=== PATIENT | male | born 1980 | race Caucasian/White ===

== ENCOUNTER 2019-02-07 18:00 | Inpatient (IN) | payer OTHER ==
[2019-02-07 21:47] VITALS: BMI 23.6
--- NOTE | 2019-02-08 02:44 | HP ---
RORY DANIEL Rehab Assess/Revision - Vital signs Vital Signs: Vital Signs Period Temp Pulse Resp BP Sys/Farooq Pulse Ox Last 24 Hr 99.5 F 142 22 119/85 Inpatient Rehab Admission - Rehab Decision to Admit Inpatient rehab admission?: Yes - Initial Determination Are CD services needed?: No Free of communicable disease: Yes Not in need of hospitalization: Yes - Rehab Admission Criteria Previous failed treatment: Yes Poor recovery environment: Yes Comorbidities: Yes Lacks judgement: No Patient is meeting Inpatient Rehab admission criteria:: Yes
--- NOTE | 2019-02-08 02:47 | HP ---
CIWA Score - Admission Criteria OASAS Guidelines: Admission for Medically Managed Detox: Requires at least one of the followin. CIWA greater than 12 2. Seizures within the past 24 hours 3. Delirium tremens within the past 24 hours 4. Hallucinations within the past 24 hours 5. Acute intervention needed for co occurring medical disorder 6. Acute intervention needed for co occurring psychiatric disorder 7. Severe withdrawal that cannot be handled at a lower level of care (continued vomiting, continued diarrhea, abnormal vital signs) requiring intravenous medication and/or fluids 8. Admitting History and Physical - Smoking History Smoking history: Never smoked Have you smoked in the past 12 months: No - Alcohol/Substance Use Hx Alcohol Use: Yes Admission [facility] Allergies/Adverse Reactions: Allergies Allergy/AdvReac Type Severity Reaction Status Date / Time No Known Allergies Allergy Verified 02/07/19 21:32 - Ebola screening Have you traveled outside of the country in the last 21 days: No (N) Have you had contact with anyone from an Ebola affected area: No Do you have a fever: No Patient History - Patient Medical History Hx Anemia: No Hx Asthma: No Hx Chronic Obstructive Pulmonary Disease (COPD): No Hx Cardiac Disorders: No Hx Congestive Heart Failure: No Hx Hypertension: Yes (no med) Hx Hypercholesterolemia: No Hx Pacemaker: No HX Cerebrovascular Accident: No Hx Seizures: No Hx Dementia: No Hx Diabetes: No Hx Gastrointestinal Disorders: No Hx Liver Disease: No Hx Genitourinary Disorders: No Hx Sexually Transmitted Disorders: No Hx Renal Disease (ESRD): No Hx Thyroid Disease: No Hx Human Immunodeficiency Virus (HIV): No (last 05/31) Hx Hepatitis C: No Hx Depression: Yes (insomnia) Hx Suicide Attempt: Yes ([place]ose) Hx Bipolar Disorder: No Hx Schizophrenia: No - Patient Surgical History Past Surgical History: Yes Hx Neurologic Surgery: No Hx Cataract Extraction: No Hx Cardiac Surgery: No Hx Lung Surgery: No Hx Breast Surgery: No Hx Breast Biopsy: No Hx Abdominal Surgery: No Hx Appendectomy: No Hx Cholecystectomy: No Hx Genitourinary Surgery: No Hx Section: No Hx Orthopedic Surgery: Yes (LEFT ARM-2000 with deformity) Anesthesia Reaction: No - PPD History Date: 08/05/14 - Smoking Cessation Smoking history: Never smoked Have you smoked in the past 12 months: No - Substances abused Alcohol Substance route: Oral Frequency: Daily Amount used: 3 or 4 40's of beer/ bottle of vodka. Age of first use: 17 Date of last use: 02/07/19 Admission Physical Exam [facility] - Vital Signs Vital Signs: Vital Signs - 24 hr 02/07/19 21:31 Temperature 99.5 F Pulse Rate 142 H Respiratory 22 H Rate Blood Pressure 119/85
[2019-02-08] MEDS ORDERED: guaiFENesin 200 MG/10 ML 10 ML UNIT-DOSE CUPS PO PRN (02:48)
[2019-02-08] MEDS ORDERED: MAG HYDROX/AL HYDROX/SIMETH 30 ML UNIT-DOSE CUP PO PRN ×2 (02:48→17:00)
[2019-02-08] MEDS ORDERED: ACETAMINOPHEN 325 MG TABLET (FP) PO PRN ×3 (02:48→17:00)
[2019-02-08] MEDS ORDERED: P-EPHED 60MG/TRIPROLIDI 2.5MG TABLET PO PRN (02:48)
[2019-02-08] MEDS ORDERED: IBUPROFEN 400 MG TABLET (FP) PO PRN ×2 (02:48→17:00)
[2019-02-08] MEDS ORDERED: MAGNESIUM CITRATE 300 ML BOTTLE PO PRN ×2 (02:48→17:00)
[2019-02-08] MEDS ORDERED: MENTHOL/PHENOL 1 EACH UD MM PRN ×2 (02:48→17:00)
[2019-02-08] MEDS ORDERED: LOPERAMIDE HCL 2 MG CAPSULE PO PRN (02:48)
[2019-02-08] MEDS ORDERED: MAGNESIUM HYDROX 2400MG/30ML ORAL SUSPENSION 30 ML CUP PO PRN ×2 (02:48→17:00)
[2019-02-08] MEDS ORDERED: NICOTINE POLACRILEX 2 MG GUM BUC PRN (02:48)
--- NOTE | 2019-02-08 02:57 | HP ---
CIWA Score - Admission Criteria OASAS Guidelines: Admission for Medically Managed Detox: Requires at least one of the followin. CIWA greater than 12 2. Seizures within the past 24 hours 3. Delirium tremens within the past 24 hours 4. Hallucinations within the past 24 hours 5. Acute intervention needed for co occurring medical disorder 6. Acute intervention needed for co occurring psychiatric disorder 7. Severe withdrawal that cannot be handled at a lower level of care (continued vomiting, continued diarrhea, abnormal vital signs) requiring intravenous medication and/or fluids 8. Admitting History and Physical - Smoking History Smoking history: Never smoked Have you smoked in the past 12 months: No Admission [facility] Chief Complaint: Seeking admission to Rehab Allergies/Adverse Reactions: Allergies Allergy/AdvReac Type Severity Reaction Status Date / Time No Known Allergies Allergy Verified 02/07/19 21:32 History of Present Illness: 38 years old male is seeking admission to Rehab. Patient has medical history of hypertension and depression. Denies suicidal ideation at this time. Patient reports that he was detoxed a [facility], [place] Exam Limitations: No Limitations - Ebola screening Have you traveled outside of the country in the last 21 days: No (N) Have you had contact with anyone from an Ebola affected area: No Do you have a fever: No - Review of Systems Constitutional: No Symptoms Reported EENT: reports: No Symptoms Reported Respiratory: reports: No Symptoms reported Cardiac: reports: No Symptoms Reported GI: reports: No Symptoms Reported : reports: No Symptoms Reported Musculoskeletal: reports: No Symptoms Reported Integumentary: reports: No Symptoms Reported Neuro: reports: No Symptoms reported Endocrine: reports: No Symptoms Reported Hematology: reports: No Symptoms Reported Psychiatric: reports: No Sypmtoms Reported, Mood/Affect Appropiate Other Systems: Reviewed and Negative Patient History - Patient Medical History Hx Anemia: No Hx Asthma: No Hx Chronic Obstructive Pulmonary Disease (COPD): No Hx Cardiac Disorders: No Hx Congestive Heart Failure: No Hx Hypertension: Yes (no med) Hx Hypercholesterolemia: No Hx Pacemaker: No HX Cerebrovascular Accident: No Hx Seizures: No Hx Dementia: No Hx Diabetes: No Hx Gastrointestinal Disorders: No Hx Liver Disease: No Hx Genitourinary Disorders: No Hx Sexually Transmitted Disorders: No Hx Renal Disease (ESRD): No Hx Thyroid Disease: No Hx Human Immunodeficiency Virus (HIV): No (last 05/31) Hx Hepatitis C: No Hx Depression: Yes (insomnia) Hx Suicide Attempt: No Hx Bipolar Disorder: No Hx Schizophrenia: No - Patient Surgical History Past Surgical History: Yes Hx Neurologic Surgery: No Hx Cataract Extraction: No Hx Cardiac Surgery: No Hx Lung Surgery: No Hx Breast Surgery: No Hx Breast Biopsy: No Hx Abdominal Surgery: No Hx Appendectomy: No Hx Cholecystectomy: No Hx Genitourinary Surgery: No Hx Section: No Hx Orthopedic Surgery: Yes (LEFT ARM-2000 with deformity) Anesthesia Reaction: No - PPD History Previous Implant?: Yes Documented Results: Negative w/o proof Implanted On Prior R Admission?: Yes Date: 08/05/14 PPD to be Administered?: Yes - Reproductive History Patient is a Female of Child Bearing Age (11 -55 yrs old): No (male) - Smoking Cessation Smoking history: Never smoked Have you smoked in the past 12 months: No Hx Chewing Tobacco Use: No Initiated information on smoking cessation: No - Substance & Tx. History Hx Alcohol Use: Yes Hx Substance Use: Yes Substance Use Type: Tranquilizers Hx Substance Use Treatment: Yes ([facility]) - Substances abused Alcohol Substance route: Oral Frequency: Daily Amount used: 3 or 4 40's of beer/ bottle of vodka. Age of first use: 17 Date of last use: 02/07/19 Admission Physical Exam [facility] - Vital Signs Vital Signs: Vital Signs - 24 hr 02/07/19 21:31 Temperature 99.5 F Pulse Rate 142 H Respiratory 22 H Rate Blood Pressure 119/85 - Physical General Appearance: Yes: Within Normal Limits, Nourished HEENTM: Yes: Within Normal Limits, Hearing grossly Normal, Normal ENT Inspection , Normocephalic, BRENDAN Respiratory: Yes: Lungs Clear, Normal Breath Sounds, No Respiratory Distress Neck: Yes: Supple Breast: Yes: Breast Exam Deferred Cardiology: Yes: Regular Rhythm, Regular Rate Abdominal: Yes: Normal Bowel Sounds Genitourinary: Yes: Within Normal Limits Back: Yes: Normal Inspection Musculoskeletal: Yes: Within Normal Limits Extremities: Yes: Within Normal Limits 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: Yes: Within Normal Limits, Alert, Normal Mood/Affect Integumentary: Yes: Warm Lymphatic: Yes: Within Normal Limits - Diagnostic (1) Alcohol dependence Current Visit: Yes Status: Chronic (2) Hypertension Current Visit: Yes Status: Chronic Qualifiers: Hypertension type: essential hypertension Qualified Code(s): I10 - Essential (primary) hypertension (3) Insomnia Current Visit: Yes Status: Chronic Cleared for Admission [facility] - Detox or Rehab [facility] Level of Care: Observation Bed Claeared for Rehab Admission: Yes Inpatient Rehab Admission - Rehab Decision to Admit Inpatient rehab admission?: Yes - Initial Determination Are CD services needed?: No Free of communicable disease: Yes Not in need of hospitalization: Yes - Rehab Admission Criteria Previous failed treatment: Yes Poor recovery environment: Yes Comorbidities: Yes Lacks judgement: No Patient is meeting Inpatient Rehab admission criteria:: Yes
[2019-02-08] MEDS ORDERED: hydrOXYzine PAMOATE 50 MG CAPSULE (FP) PO ONE (03:58)
[2019-02-08 09:33] LABS: HEMOGLOBIN 12.7 GM/dL (11.7-16.9); MCH 31.4 pg (25.7-33.7); MCHC 34.3 g/dl (32.0-35.9); MEAN CELL VOLUME 91.5 fl (80-96); PLATELET COUNT 240 K/MM3 (134-434); RBC 4.05 M/mm3 (4.00-5.60); RDW 14.5 % (11.9-15.9); WHITE BLOOD COUNT 5.7 K/mm3 (4.0-10.0)
[2019-02-08 09:50] LABS: ALBUMIN 3.9 g/dl (3.4-5.0); BILIRUBIN,TOTAL 0.4 mg/dL (0.2-1); BLOOD UREA NITROGEN 18.2 mg/dL (7-18); CALCIUM 8.9 mg/dL (8.5-10.1); POTASSIUM 3.9 mmol/L (3.5-5.1); TOT PROT 7.4 g/dl (6.4-8.2)
[2019-02-08] MEDS ORDERED: NICOTINE 14 MG/24 HOURS TOPICAL PATCH TD SCH (10:00)
[2019-02-08] MEDS ORDERED: PRENATAL VITAMINS W/ FOLIC ACID TABLET (FP) PO SCH (10:00)
--- NOTE | 2019-02-08 11:27 | EKG ---
Test Reason : Blood Pressure : / mmHG Vent. Rate : 097 BPM Atrial Rate : 097 BPM P-R Int : 126 ms QRS Dur : 090 ms QT Int : 384 ms P-R-T Axes : 155 -25 -29 degrees QTc Int : 487 ms UNUSUAL P AXIS, POSSIBLE ECTOPIC ATRIAL RHYTHM INFERIOR INFARCT , AGE UNDETERMINED ABNORMAL ECG NO PREVIOUS ECGS AVAILABLE Confirmed by Camacho Woodard MD ([id number]) on 02/08/2019 11:26:31 AM Referred By: Confirmed By:Camacho Woodard MD
[2019-02-08] MEDS ORDERED: hydrOXYzine PAMOATE 50 MG CAPSULE (FP) PO PRN (12:08)
[2019-02-08] MEDS ORDERED: cloNIDine HCL 0.1 MG TABLET PO ONE (13:15)
--- NOTE | 2019-02-08 15:54 | HP ---
CIWA Score Nausea/Vomitin-Mild Nausea/No Vomiting Muscle Tremors: 7-Severe,w/o Arm Extended Anxiety: 4-Mod. Anxious/Guarded Agitation: 0-Normal Activity Paroxysmal Sweats: 4-Forehead w/Sweat Beads Orientation: 0-Oriented Tacttile Disturbances: 0-None Auditory Disturbances: 0-None Visual Disturbances: 0-None Headache: 0-None Present CIWA-Ar Total Score: 16 - Admission Criteria OASAS Guidelines: Admission for Medically Managed Detox: Requires at least one of the followin. CIWA greater than 12 2. Seizures within the past 24 hours 3. Delirium tremens within the past 24 hours 4. Hallucinations within the past 24 hours 5. Acute intervention needed for co occurring medical disorder 6. Acute intervention needed for co occurring psychiatric disorder 7. Severe withdrawal that cannot be handled at a lower level of care (continued vomiting, continued diarrhea, abnormal vital signs) requiring intravenous medication and/or fluids 8. Admitting History and Physical - Past Medical History Cardiovascular: Yes: HTN Gastrointestinal: Yes: Other (heartburn) Psych: Yes: Depression (due to drinking-no treatment) Additional Past Medical History: HTN -no meds - Smoking History Smoking history: Current some day smoker Have you smoked in the past 12 months: Yes Aproximately how many cigarettes per day: 1 - Alcohol/Substance Use Hx Alcohol Use: Yes Number of Drinks Daily: 3 History of Substance Use: reports: Cocaine Date of Last Use: 02/07/19 - Social History Usual Living Arrangement: Yes: Alone Do you think of yourself as: Straight/Heterosexual Occupation: Unemployed History of Recent Travel: No Admission [facility] Chief Complaint: Alcohol withdrawal symptoms. Allergies/Adverse Reactions: Allergies Allergy/AdvReac Type Severity Reaction Status Date / Time No Known Allergies Allergy Verified 02/07/19 21:32 History of Present Illness: Pt is a 38 y/o male with a hx of chronic alcohol use presented to [facility] last night and was admitted to rehab but now very tremulous with intermittent restlessness, nausea with no vomiting earlier in the day, facial flushing. Pt reports he was in [facility] for detox last week, was discharged last Thursday and began drinking heavily soon after discharge till yesterday when last drank alcohol. Due to pt's withdrawal sx while in rehab pt will be transferred to detox floor once bed is made available this evening. Exam Limitations: No Limitations - Ebola screening Have you traveled outside of the country in the last 21 days: No (N) Have you had contact with anyone from an Ebola affected area: No Do you have a fever: No - Review of Systems Constitutional: Chills, Diaphoresis, Night Sweats EENT: reports: Tearing, Nose Congestion (sometimes) Respiratory: reports: No Symptoms reported Cardiac: reports: Lightheadedness (when drinking), Palpitations (due to alcohol intoxication) GI: reports: Diarrhea, Nausea, Vomiting (due to drinking) : reports: No Symptoms Reported Musculoskeletal: reports: No Symptoms Reported Integumentary: reports: No Symptoms Reported Neuro: reports: Headache, Tremors, Dizziness Endocrine: reports: No Symptoms Reported Hematology: reports: No Symptoms Reported Psychiatric: reports: Orientated x3, Anxious, Depressed (due to drinking alcohol ; no medication and does not see psych doctor) Other Systems: Reviewed and Negative Patient History - Patient Medical History Hx Anemia: No Hx Asthma: No Hx Chronic Obstructive Pulmonary Disease (COPD): No Hx Cardiac Disorders: No Hx Congestive Heart Failure: No Hx Hypertension: Yes ("due to drinking"(no medication)) Hx Hypercholesterolemia: No Hx Pacemaker: No HX Cerebrovascular Accident: No Hx Seizures: No Hx Dementia: No Hx Diabetes: No Hx Gastrointestinal Disorders: Yes (heartburn sometimes) Hx Liver Disease: No Hx Genitourinary Disorders: No Hx Sexually Transmitted Disorders: No (denies) Hx Renal Disease (ESRD): No Hx Thyroid Disease: No Hx Human Immunodeficiency Virus (HIV): No (last 05/31) Hx Hepatitis C: No Hx Depression: Yes (insomnia-no meds, takes "alcohol") Hx Suicide Attempt: No Hx Bipolar Disorder: No Hx Schizophrenia: No - Patient Surgical History Past Surgical History: Yes Hx Neurologic Surgery: No Hx Cataract Extraction: No Hx Cardiac Surgery: No Hx Lung Surgery: No Hx Breast Surgery: No Hx Breast Biopsy: No Hx Abdominal Surgery: No Hx Appendectomy: No Hx Cholecystectomy: No Hx Genitourinary Surgery: No Hx Section: No Hx Orthopedic Surgery: Yes (LEFT ARM-2000 with deformity) Anesthesia Reaction: No - PPD History Previous Implant?: Yes Documented Results: Negative w/o proof Implanted On Prior R Admission?: Yes Date: 02/08/19 (on [facility]) PPD to be Administered?: No - Reproductive History Patient is a Female of Child Bearing Age (11 -55 yrs old): No (male ) - Smoking Cessation Smoking history: Current some day smoker Have you smoked in the past 12 months: Yes Aproximately how many cigarettes per day: 1 Hx Chewing Tobacco Use: No Initiated information on smoking cessation: Yes 'Breaking Loose' booklet given: 02/08/19 - Substance & Tx. History Hx Alcohol Use: Yes (Beer/Vodka) Hx Substance Use: Yes (cocaine) Substance Use Type: Alcohol, Cocaine Hx Substance Use Treatment: Yes ([facility]) - Substances abused Alcohol Substance route: Oral Frequency: Daily Amount used: 3 or 4 40's of beer/ one bottle of vodka. Age of first use: 17 Date of last use: 02/07/19 Cocaine Substance route: Inhalation Frequency: 1-3 times last 30 days Amount used: $40 Age of first use: 17 Date of last use: 01/04/19 Admission Physical Exam S - Vital Signs Vital Signs: Vital Signs - 24 hr 02/07/19 02/08/19 02/08/19 21:31 03:41 07:19 Temperature 99.5 F 97.9 F 97.8 F Pulse Rate 142 H 104 H 107 H Respiratory 22 H 20 20 Rate Blood Pressure 119/85 140/98 144/99 - Physical General Appearance: Yes: Moderate Distress, Tremorous, Anxious HEENTM: Yes: EOMI, Normocephalic, BRENDAN, Pharynx Normal Respiratory: Yes: Chest Non-Tender, Lungs Clear, Normal Breath Sounds, No Respiratory Distress Neck: Yes: Supple, Trachea in good position Breast: Yes: Breast Exam Deferred Cardiology: Yes: Regular Rhythm, S1, S2, Tachycardia Abdominal: Yes: Normal Bowel Sounds, Non Tender, Flat, Soft Genitourinary: Yes: Other (n/c) Back: Yes: Within Normal Limits Musculoskeletal: Yes: full range of Motion, Gait Steady, Other (Right hand sx with deformity.) Extremities: Yes: Normal Capillary Refill, Normal Range of Motion, Non-Tender, Tremors 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: 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 NML intact, Fully Oriented, Alert, Motor Strength 5/5 Integumentary: Yes: Dry (sweaty earlier), Warm Lymphatic: Yes: Within Normal Limits - Diagnostic (1) Alcohol dependence with withdrawal, uncomplicated Current Visit: Yes Status: Acute (2) Hypertension Current Visit: Yes Status: Chronic Qualifiers: Hypertension type: unspecified Qualified Code(s): I10 - Essential (primary ) hypertension Cleared for Admission [facility] - Detox or Rehab [facility] Level of Care: Medically Managed Detox Regimen/Protocol: Librium Claeared for Rehab Admission: No Inpatient Rehab Admission - Rehab Decision to Admit Inpatient rehab admission?: No
[2019-02-08] MEDS ORDERED: METHOCARBAMOL 500 MG TABLET PO PRN (17:00)
[2019-02-08] MEDS ORDERED: chlordiazePOXIDE HCL 10 MG CAPSULE PO PRN (17:00)
[2019-02-08] MEDS ORDERED: BISMUTH SUBSALICYLATE 524 MG/30 ML UD PO PRN (17:00)
[2019-02-08] MEDS ORDERED: hydrOXYzine PAMOATE 25 MG CAPSULE (FP) PO PRN (17:00)
[2019-02-08] MEDS ORDERED: chlordiazePOXIDE HCL 25 MG CAPSULE PO ONE (18:00)
[2019-02-08] MEDS: MELATONIN 5 MG TABLETS PO PRN (21:25)
[2019-02-08] MEDS: THIAMINE HCL 100 MG TABLET (FP) PO SCH (21:25)
[2019-02-08] MEDS: chlordiazePOXIDE HCL 25 MG CAPSULE PO SCH (21:25)
[2019-02-08] MEDS ORDERED: MELATONIN 5 MG TABLETS PO PRN (22:00)
[2019-02-08] MEDS ORDERED: THIAMINE HCL 100 MG TABLET (FP) PO SCH (22:00)
[2019-02-09] MEDS: chlordiazePOXIDE HCL 25 MG CAPSULE PO SCH ×2 (05:40→14:06)
[2019-02-09] MEDS: PRENATAL VITAMINS W/ FOLIC ACID TABLET (FP) PO SCH (10:14)
--- NOTE | 2019-02-09 11:40 | EKG ---
Test Reason : Blood Pressure : / mmHG Vent. Rate : 104 BPM Atrial Rate : 104 BPM P-R Int : 132 ms QRS Dur : 084 ms QT Int : 360 ms P-R-T Axes : 047 012 -12 degrees QTc Int : 473 ms SINUS TACHYCARDIA MINIMAL VOLTAGE CRITERIA FOR LVH, MAY BE NORMAL VARIANT BORDERLINE ECG WHEN COMPARED WITH ECG OF 08-FEB-2019 10:54, SINUS RHYTHM HAS REPLACED ECTOPIC ATRIAL RHYTHM CRITERIA FOR INFERIOR INFARCT ARE NO LONGER PRESENT Confirmed by GAGANDEEP DANIEL, MANSOOR ([id number]) on 02/09/2019 11:40:04 AM Referred By: Confirmed By:MANSOOR DONIS MD
--- NOTE | 2019-02-09 13:25 | PN ---
[facility] CIWA - CIWA Score Nausea/Vomitin-Mild Nausea/No Vomiting Muscle Tremors: 4-Moderate,w/Arms Extend Anxiety: 4-Mod. Anxious/Guarded Agitation: 3 Paroxysmal Sweats: 2 Orientation: 1-Uncertain about Date (date of week) Tacttile Disturbances: 0-None Auditory Disturbances: 0-None Visual Disturbances: 0-None Headache: 0-None Present CIWA-Ar Total Score: 15 S Progress Note (SOAP) Subjective: 38 years old male admitted on 04/10/18 for alcohol withdrawal sx management treated with librium detox regimen resting on bed feeling tired ate breakfast and lunch feeling tired prefers to resting on bed today Objective: 02/09/19 13:29 Vital Signs Temperature 97.4 F L 02/09/19 13:16 Pulse Rate 100 H 02/09/19 13:16 Respiratory Rate 18 02/09/19 13:16 Blood Pressure 137/93 02/09/19 13:16 O2 Sat by Pulse Oximetry (%) Laboratory Last Values WBC 5.7 K/mm3 (4.0-10.0) 02/08/19 08:00 RBC 4.05 M/mm3 (4.00-5.60) 02/08/19 08:00 Hgb 12.7 GM/dL (11.7-16.9) 02/08/19 08:00 Hct 37.0 % (35.4-49) 02/08/19 08:00 MCV 91.5 fl (80-96) 02/08/19 08:00 MCH 31.4 pg (25.7-33.7) 02/08/19 08:00 MCHC 34.3 g/dl (32.0-35.9) 02/08/19 08:00 RDW 14.5 % (11.9-15.9) 02/08/19 08:00 Plt Count 240 K/MM3 (134-434) D 02/08/19 08:00 MPV 9.0 fl (7.5-11.1) D 02/08/19 08:00 Sodium 134 mmol/L (136-145) L 02/08/19 08:00 Potassium 3.9 mmol/L (3.5-5.1) 02/08/19 08:00 Chloride 100 mmol/L (98-107) 02/08/19 08:00 Carbon Dioxide 25 mmol/L (21-32) 02/08/19 08:00 Anion Gap 10 MMOL/L (8-16) 02/08/19 08:00 BUN 18.2 mg/dL (7-18) H 02/08/19 08:00 Creatinine 1.0 mg/dL (0.55-1.3) 02/08/19 08:00 Est GFR (CKD-EPI)AfAm 109.40 02/08/19 08:00 Est GFR (CKD-EPI)NonAf 94.39 02/08/19 08:00 Random Glucose 92 mg/dL (74-106) 02/08/19 08:00 Calcium 8.9 mg/dL (8.5-10.1) 02/08/19 08:00 Total Bilirubin 0.4 mg/dL (0.2-1) 02/08/19 08:00 AST 426 U/L (15-37) H 02/08/19 08:00 ALT 247 U/L (13-61) H 02/08/19 08:00 Alkaline Phosphatase 133 U/L (45-117) H 02/08/19 08:00 Total Protein 7.4 g/dl (6.4-8.2) 02/08/19 08:00 Albumin 3.9 g/dl (3.4-5.0) 02/08/19 08:00 RPR Titer Nonreactive (NONREACTIVE) 02/08/19 08:00 lab noted ast elevation Assessment: 02/09/19 13:31 alcohol withdrawal sx Plan: with change librium to ativan detox regimen
[2019-02-09] MEDS ORDERED: LORazepam 1 MG TABLET PO PRN (13:46)
[2019-02-09] MEDS: LORazepam 0.5 MG TABLET PO SCH ×2 (16:53→21:59)
[2019-02-09] MEDS: THIAMINE HCL 100 MG TABLET (FP) PO SCH (21:59)
[2019-02-09] MEDS: MELATONIN 5 MG TABLETS PO PRN (22:00)
[2019-02-10] MEDS ORDERED: chlordiazePOXIDE 5 MG CAPSULE PO SCH (05:00)
[2019-02-10] MEDS: LORazepam 0.5 MG TABLET PO SCH ×3 (05:17→21:19)
[2019-02-10] MEDS: PRENATAL VITAMINS W/ FOLIC ACID TABLET (FP) PO SCH (10:05)
[2019-02-10] MEDS ORDERED: MINERAL OIL/PETROLAT/WATER TOPICAL CREAM 113 GM JAR TP SCH (11:15)
--- NOTE | 2019-02-10 11:18 | PN ---
[facility] CIWA - CIWA Score Nausea/Vomitin-Mild Nausea/No Vomiting Muscle Tremors: 3 Anxiety: 3 Agitation: 2 Paroxysmal Sweats: 1-Minimal Palms Moist Orientation: 0-Oriented Tacttile Disturbances: 1-Very Mild Itch/Numbness Auditory Disturbances: 0-None Visual Disturbances: 0-None Headache: 0-None Present CIWA-Ar Total Score: 11 S Progress Note (SOAP) Subjective: 38 years old male admitted on 02/08/19 for alcohol withdrawal sx management treated with ativan detox regimen due to ast elevation repeat ast Objective: 02/10/19 11:25 Vital Signs Temperature 98.4 F 02/10/19 09:08 Pulse Rate 99 H 02/10/19 09:08 Respiratory Rate 18 02/10/19 09:08 Blood Pressure 116/80 02/10/19 09:08 O2 Sat by Pulse Oximetry (%) Laboratory Last Values WBC 5.7 K/mm3 (4.0-10.0) 02/08/19 08:00 RBC 4.05 M/mm3 (4.00-5.60) 02/08/19 08:00 Hgb 12.7 GM/dL (11.7-16.9) 02/08/19 08:00 Hct 37.0 % (35.4-49) 02/08/19 08:00 MCV 91.5 fl (80-96) 02/08/19 08:00 MCH 31.4 pg (25.7-33.7) 02/08/19 08:00 MCHC 34.3 g/dl (32.0-35.9) 02/08/19 08:00 RDW 14.5 % (11.9-15.9) 02/08/19 08:00 Plt Count 240 K/MM3 (134-434) D 02/08/19 08:00 MPV 9.0 fl (7.5-11.1) D 02/08/19 08:00 Sodium 134 mmol/L (136-145) L 02/08/19 08:00 Potassium 3.9 mmol/L (3.5-5.1) 02/08/19 08:00 Chloride 100 mmol/L (98-107) 02/08/19 08:00 Carbon Dioxide 25 mmol/L (21-32) 02/08/19 08:00 Anion Gap 10 MMOL/L (8-16) 02/08/19 08:00 BUN 18.2 mg/dL (7-18) H 02/08/19 08:00 Creatinine 1.0 mg/dL (0.55-1.3) 02/08/19 08:00 Est GFR (CKD-EPI)AfAm 109.40 02/08/19 08:00 Est GFR (CKD-EPI)NonAf 94.39 02/08/19 08:00 Random Glucose 92 mg/dL (74-106) 02/08/19 08:00 Calcium 8.9 mg/dL (8.5-10.1) 02/08/19 08:00 Total Bilirubin 0.4 mg/dL (0.2-1) 02/08/19 08:00 AST 426 U/L (15-37) H 02/08/19 08:00 ALT 247 U/L (13-61) H 02/08/19 08:00 Alkaline Phosphatase 133 U/L (45-117) H 02/08/19 08:00 Total Protein 7.4 g/dl (6.4-8.2) 02/08/19 08:00 Albumin 3.9 g/dl (3.4-5.0) 02/08/19 08:00 RPR Titer Nonreactive (NONREACTIVE) 02/08/19 08:00 02/10/19 11:26 ast elevation repeat ast Assessment: 02/10/19 11:27 alcohol withdrawal sx Plan: continue ativan detox regimen
[2019-02-10] MEDS: MINERAL OIL/PETROLAT/WATER TOPICAL CREAM 113 GM JAR TP SCH (12:39)
[2019-02-10] MEDS: MELATONIN 5 MG TABLETS PO PRN (21:19)
[2019-02-10] MEDS: THIAMINE HCL 100 MG TABLET (FP) PO SCH (21:19)
[2019-02-11] MEDS ORDERED: chlordiazePOXIDE HCL 10 MG CAPSULE PO PRN
[2019-02-11] MEDS ORDERED: chlordiazePOXIDE HCL 10 MG CAPSULE PO SCH (05:00)
[2019-02-11] MEDS: LORazepam 0.5 MG TABLET PO SCH ×2 (05:26→17:40)
[2019-02-11] MEDS: LORazepam 0.5 MG TABLET PO PRN ×2 (09:16→21:29)
[2019-02-11] MEDS: MINERAL OIL/PETROLAT/WATER TOPICAL CREAM 113 GM JAR TP SCH (09:57)
[2019-02-11] MEDS: PRENATAL VITAMINS W/ FOLIC ACID TABLET (FP) PO SCH (09:58)
--- NOTE | 2019-02-11 13:56 | PN ---
S CIWA - CIWA Score Nausea/Vomitin-No Nausea/No Vomiting Muscle Tremors: 1-None Visible, but [place] Anxiety: 1-Mildly Anxious Agitation: 1-Slight > Activity Paroxysmal Sweats: No Perspiration Orientation: 0-Oriented Tacttile Disturbances: 1-Very Mild Itch/Numbness Auditory Disturbances: 0-None Visual Disturbances: 0-None Headache: 1-Very Mild CIWA-Ar Total Score: 5 B[facility] Progress Note (SOAP) Subjective: alert,irritable,anxious,interrupted sleep Objective: 02/11/19 13:55 Vital Signs Temperature 98.1 F 02/11/19 13:20 Pulse Rate 96 H 02/11/19 13:20 Respiratory Rate 18 02/11/19 13:20 Blood Pressure 130/88 02/11/19 13:20 O2 Sat by Pulse Oximetry (%) Assessment: 02/11/19 13:56 withdrawal symptom Plan: continue detox ativan regimen
[2019-02-11] MEDS: THIAMINE HCL 100 MG TABLET (FP) PO SCH (21:29)
[2019-02-11] MEDS: MELATONIN 5 MG TABLETS PO PRN (21:30)
[2019-02-12] MEDS ORDERED: chlordiazePOXIDE HCL 10 MG CAPSULE PO ONE (05:00)
[2019-02-12] MEDS ORDERED: LORazepam 0.5 MG TABLET PO ONE (05:00)
[2019-02-12] MEDS ORDERED: cloNIDine HCL 0.1 MG TABLET PO ONE (09:15)
[2019-02-12 09:38] VITALS: BP 143/93; TEMP 98.6
[2019-02-12 09:53] VITALS: PULSE 116
--- NOTE | 2019-02-12 15:03 | DS ---
[facility] Detox Discharge Summary Admission Date: 02/08/19 Discharge Date: 02/12/19 - History Present History: Alcohol Dependence Additional Comments: Pt is medically cleared and is discharged today. Pt completed the detox protocol. Pt's HR/BP is elevated (refer to vital signs flowsheet). Pt denies any headache, chest pain, palpitations, sob, N/V. clonidine 0.1mg po once given. HR/BP repeat is 116, 138/94. Pt is instructed to go to the nearest ER if any feelings of chest pain, palpitations, sob, or headache. Pt is also instructed to follow-up with [facility] outpatient program and also to follow-up with his pmd. Pt verbalized understanding of the information given. Pt is alert and oriented x3 and in no respiratory distress. Pertinent Past History: H/O alcohol use disorder. - Physical Exam Results Vital Signs: Vital Signs Temperature 98.6 F 02/12/19 09:37 Pulse Rate 116 H 02/12/19 09:53 Respiratory Rate 16 02/12/19 09:37 Blood Pressure 143/93 02/12/19 09:37 O2 Sat by Pulse Oximetry (%) Vital Signs 02/12/19 02/12/19 02/12/19 09:37 09:49 09:53 Temperature 98.6 F Pulse Rate 140 H 121 H 116 H Respiratory 16 Rate Blood Pressure 143/93 Elevated HR/BP. Laboratory Last Values WBC 5.7 K/mm3 (4.0-10.0) 02/08/19 08:00 RBC 4.05 M/mm3 (4.00-5.60) 02/08/19 08:00 Hgb 12.7 GM/dL (11.7-16.9) 02/08/19 08:00 Hct 37.0 % (35.4-49) 02/08/19 08:00 MCV 91.5 fl (80-96) 02/08/19 08:00 MCH 31.4 pg (25.7-33.7) 02/08/19 08:00 MCHC 34.3 g/dl (32.0-35.9) 02/08/19 08:00 RDW 14.5 % (11.9-15.9) 02/08/19 08:00 Plt Count 240 K/MM3 (134-434) D 02/08/19 08:00 MPV 9.0 fl (7.5-11.1) D 02/08/19 08:00 Sodium 134 mmol/L (136-145) L 02/08/19 08:00 Potassium 3.9 mmol/L (3.5-5.1) 02/08/19 08:00 Chloride 100 mmol/L (98-107) 02/08/19 08:00 Carbon Dioxide 25 mmol/L (21-32) 02/08/19 08:00 Anion Gap 10 MMOL/L (8-16) 02/08/19 08:00 BUN 18.2 mg/dL (7-18) H 02/08/19 08:00 Creatinine 1.0 mg/dL (0.55-1.3) 02/08/19 08:00 Est GFR (CKD-EPI)AfAm 109.40 02/08/19 08:00 Est GFR (CKD-EPI)NonAf 94.39 02/08/19 08:00 Random Glucose 92 mg/dL (74-106) 02/08/19 08:00 Calcium 8.9 mg/dL (8.5-10.1) 02/08/19 08:00 Total Bilirubin 0.4 mg/dL (0.2-1) 02/08/19 08:00 AST 65 U/L (15-37) H 02/11/19 09:34 ALT 247 U/L (13-61) H 02/08/19 08:00 Alkaline Phosphatase 133 U/L (45-117) H 02/08/19 08:00 Total Protein 7.4 g/dl (6.4-8.2) 02/08/19 08:00 Albumin 3.9 g/dl (3.4-5.0) 02/08/19 08:00 RPR Titer Nonreactive (NONREACTIVE) 02/08/19 08:00 Labs noted. Pertinent Admission Physical Exam Findings: withdrawal symptoms. - Treatment Hospital Course: Detox Protocol Followed, Detoxed Safely, Responded well, Discharged Condition Good - Medication Discharge Medications: Ambulatory Orders NK [No Known Home Medication] 02/08/19 - Diagnosis (1) Alcohol dependence with withdrawal, uncomplicated Status: Acute (2) Syncope Status: Acute (3) Weight loss Status: Acute (4) Alcohol dependence Status: Chronic (5) Hypertension Status: Chronic Qualifiers: Hypertension type: unspecified Qualified Code(s): I10 - Essential (primary ) hypertension - AMA Did Patient Leave Against Medical Advice: No
== END 2019-02-12 09:57 | disposition home or self-care (01) | DRG 774 ==
LOC: YASAS 18:00 → Y3W 02-08 03:03 → Y3N 02-08 16:37
PROVIDERS: ADMIT Allergy & Immunology; ATTEND Allergy & Immunology
PROC: HZ2ZZZZ Detoxification Services for Substance Abuse Treatment (ICD-10-PCS; principal; 2019-02-08)
DX: F10.230 Alcohol dependence with withdrawal, uncomplicated (principal); F14.10 Cocaine abuse, uncomplicated; F17.210 Nicotine dependence, cigarettes, uncomplicated; I10 Essential (primary) hypertension; F32.9 Major depressive disorder, single episode, unspecified; G47.00 Insomnia, unspecified; R94.5 Abnormal results of liver function studies; R63.4 Abnormal weight loss; Z68.23 Body mass index [BMI] 23.0-23.9, adult; R55 Syncope and collapse
CPT/HCPCS: 36415; 80053; 84450; 85027; 86593; 93005; 93010; J0735